=== PATIENT | female | born 1980 | race Caucasian/White ===

== ENCOUNTER 2023-08-24 10:48 | Emergency (ER) | payer BC, SELFPAY ==
--- NOTE | 2023-08-24 10:52 | ED.SKABFB ---
HPI - Skin/Abscess/Foreign Bdy General Chief complaint: Skin/Abscess/Foreign Body Stated complaint: itching of body Time Seen by Provider: 08/24/23 11:07 Source: patient and RN notes reviewed Mode of arrival: ambulatory Limitations: no limitations History of Present Illness HPI narrative: 43-year-old female presents with concern for severe itching from the waist down that started yesterday. She reports she has taken Benadryl without relief. She denies rash. She reports she has had this before once in the past and had to have a steroid shot to make it go away. She denies swollen lips, swollen tongue, trouble breathing, fever, diarrhea, vomiting. She denies any known triggers or allergies MD complaint: other (Itching) Related Data Home Medications Medication Instructions Recorded Confirmed aliskiren 150 mg tablet 150 mg PO DAILY 08/24/23 08/24/23 alprazolam 0.25 mg tablet 0.25 mg PO BID 08/24/23 08/24/23 escitalopram oxalate 20 mg tablet 20 mg PO DAILY 08/24/23 08/24/23 Allergies Allergy/AdvReac Type Severity Reaction Status Date / Time No Known Allergies Allergy Verified 08/24/23 11:10 Review of Systems Review of Systems: CONSTITUTIONAL: Denies malaise, chills, sweats, or fever. EYES: Denies redness, or discharge. ENT: Denies rhinorrhea, congestion, swollen lips, swollen tongue CARDIOVASCULAR: Denies chest pain, palpitations, or edema. RESPIRATORY: Denies cough or dyspnea. GASTROINTESTINAL: Denies abdominal pain, nausea, vomiting SKIN: Reports generalized itchiness MUSCULOSKELETAL: Denies joint pain or myalgia. NEUROLOGIC: Denies headache. All systems reviewed & are unremarkable except as noted in HPI and below PMFSH Comments At time of signature, agree with nursing past medical, surgical, social and family history. There is no relevant family history pertinent to the presenting complaint Exam Narrative: GENERAL: Well-appearing, well-nourished, and in no acute distress. HEAD: Normocephalic, atraumatic. EYES: PERRLA, conjunctivae clear, and EOMI. ENT: Mucous membranes moist. Oropharynx without edema, erythema or lesions. NECK: Supple. No lymphadenopathy CHEST: Clear to auscultation. No respiratory distress. HEART: Regular rate and rhythm. SKIN: Warm, dry, no rash noted. Patient is scratching NEURO: Alert and oriented x3. PSYCH: Normal mood and affect Course Course Emergency Course: Patient is aware of diagnosis, understands and agrees to treatment plan. Anticipatory guidance given. Patient agrees to follow-up as directed and is aware of reasons to seek care at the emergency department. Portions of this record may have been created with voice recognition software Level of Care: Express Care Visit Vital Signs Vital signs: Vital Signs Temperature 98.8 F 08/24/23 11:03 Pulse Rate 67 08/24/23 11:03 Respiratory Rate 16 08/24/23 11:03 Blood Pressure 124/91 H 08/24/23 11:03 Pulse Oximetry 99 08/24/23 11:03 Oxygen Delivery Room Air 08/24/23 11:03 Temperature 98.8 F 08/24/23 11:03 Pulse Rate 67 08/24/23 11:03 Respiratory Rate 16 08/24/23 11:03 Blood Pressure 124/91 H 08/24/23 11:03 Pulse Oximetry 99 08/24/23 11:03 Oxygen Delivery Room Air 08/24/23 11:03 Reviewed. MDM - Skin/Abscess/Foreign Bdy MDM Narrative Medical decision making narrative: Does not appear at this time to be erythema multiforme, bullous, SJS, TEN; no evidence at this time to suggest RMSF, endocarditis or Lyme disease; patient looks well, nontoxic and is tolerating oral intake; no neurologic signs or symptoms; no headache, photophobia or neck pain; afebrile; appropriate for initial outpatient treatment; discussed the importance of follow-up, patient agrees; question, viral exanthema, contact dermatitis, allergic dermatitis, eczema, urticaria. No soft palate or uvula edema, no tongue, lip edema or other mucosal involvement, no respiratory compromise, no stridor, no wheezing, no wheezi
[2023-08-24 11:03] VITALS: BP 124/91; PULSE 67; RESP 16; TEMP 37.1; O2SAT 99
[2023-08-24] MEDS: methylPREDNISolone SOD SUCC 125 MG VIAL IM (11:24)
== END 2023-08-24 11:48 | disposition home or self-care (01) ==
PROVIDERS: Emergency Provider Nurse Practitioner
DX: L50.9 Urticaria, unspecified (principal); I10 Essential (primary) hypertension; F41.9 Anxiety disorder, unspecified
CPT/HCPCS: 96372; 99203; G0463; J2919